=== PATIENT | female | born 1990 | race African-American/Black ===

== ENCOUNTER → 2021-05-14 | Outpatient (CLI) | payer OTHER | LOC: LAB 07:18 | PROVIDERS: ATTEND Internal Medicine Pulmonary Disease | DX: R51.9 Headache, unspecified (principal); R05.9 Cough, unspecified; R06.02 Shortness of breath; J02.9 Acute pharyngitis, unspecified; R09.81 Nasal congestion; R43.9 Unspecified disturbances of smell and taste; R53.81 Other malaise; Z20.822 Contact with and (suspected) exposure to COVID-19 | CPT/HCPCS: U0003; U0005 ==